=== PATIENT | female | born 1980 | race Caucasian/White ===

== ENCOUNTER → 2020-04-04 09:01 | Outpatient (CLI) | payer BC, SELFPAY ==
--- NOTE | 2020-04-04 09:11 | US_ITS ---
STUDY: ABDOMINAL ULTRASOUND - RIGHT UPPER QUADRANT REASON FOR VISIT: Female, 39 years old RUQ PAIN TECHNIQUE: Ultrasound evaluation of the right upper quadrant was performed with real-time and static shell-scale imaging. TECHNICAL QUALITY: Adequate. COMPARISON: None. FINDINGS: Liver: The liver measures 16.2 cm. There is normal echogenicity of the liver. The bile ducts are within normal limits. There is hepatic color flow. The direction of portal flow is hepatopetal. There is no demonstrated mass lesion. Gallbladder: Normal distended gallbladder. The gallbladder wall measures 2 mm. There is a negative sonographic Gallegos''s sign. There is no pericholecystic fluid. There are multiple echogenic structures within the gallbladder, consistent with multiple gallstones. Common Bile Duct (C.B.D.): The common bile duct measures 3 mm. Pancreas: Normal size of the head, body and tail of the pancreas. There is normal echogenicity of the pancreas. There is no demonstrated pancreatic mass or cyst. Right Kidney: Normal size of the right kidney. The right kidney measures 10.3 x 4.3 x 3.9 cm. Normal renal cortex. The right cortex measures 1.1 cm. There is no demonstrated renal mass or cyst. There is no right hydronephrosis, there are nonobstructing renal stones. Largest measures 0.3 x 0.4 cm. There is a extrarenal pelvis. US/Gallbladder IMPRESSION: Cholelithiasis, no sonographic evidence of acute cholecystitis Nonobstructing right nephrolithiasis Electronically Signed: Manish Martin MD at 9:53 EDT , Service support ,
== END ==
PROVIDERS: PCP Internal Medicine; Referring Provider Internal Medicine; Visit Provider Internal Medicine
DX: R10.11 Right upper quadrant pain (principal)
CPT/HCPCS: 76705

== ENCOUNTER 2021-01-31 08:20 | Outpatient (RCR) | payer BC, SELFPAY ==
[2020-05-08 13:11] VITALS: BMI 35.0
[2021-01-31] MEDS: COVID-19 VACC, MRNA(PFIZER)/PF 30 MCG/0.3 ML SYRINGE IM (13:50)
[2021-02-21] MEDS: COVID-19 VACC, MRNA(PFIZER)/PF 30 MCG/0.3 ML SYRINGE IM (13:22)
== END 2021-03-20 23:59 ==
LOC: IMMUN 08:20
PROVIDERS: PCP Internal Medicine; Visit Provider Family Medicine
DX: Z23 Encounter for immunization (principal)
CPT/HCPCS: 0001A; 0002A; 91300

== ENCOUNTER 2022-06-04 13:55 | Observation (INO) | payer BC, SELFPAY ==
[2022-06-04] VITALS (19 sets, daily range): BP systolic 100–147; BP diastolic 43–89; PULSE 60–89; RESP 14–16; TEMP 36.5–37.3; O2SAT 96–100; BMI 26.8; BMI 28.3
--- NOTE | 2022-06-04 | GALL_PTH ---
PATIENT: JALEN MELVIN LOC: MS3 U#:[id number] AGE/SX: 41/F ROOM: SC311 RE06/04/[address]: Dr. Varun Enriquez MD : 1980 BED: 1 DIS: 06/05/2022 SPEC #: [id number] RECD: 06/04/22 13:23 STATUS: MINDY JOHNSONFredis #: [id number] C[place]: 06/04/22 00:[address]: Varun Enriquez DEPT: SURGICAL PATHOLOGY RECD BY: Sidney Chavez ENTERED: 06/04/22 13:23 SP TYPE: BETTE MANRIQUE DR: LIEN MORALES, SPRUE CUTTING PRESS OPERATOR-C Tissues: Gallbladder, NOS Procedures: Surgery Specimen Level III HEADER OPERATION: Laparoscopic cholecystectomy with IOC PRE-OP DIAGNOSIS: Gallstones TISSUE SUBMITTED: Gallbladder MICROSCOPIC DIAGNOSIS Gallbladder, cholecystectomy: Chronic cholecystitis, cholelithiasis and cholesterolosis. SJ:angie 06/05/2022 MICROSCOPIC DESCRIPTION Slides are reviewed. GROSS DESCRIPTION Received is one container labeled with the patient's name and designated gallbladder. The specimen consists of a gallbladder measuring 10 cm in length and 3 cm in diameter. The external surface is pink-mitchell, smooth and glistening for the most part. Focally it is granular, hemorrhagic and contains cautery artifact. The gallbladder contains green-yellow mucoid bile and multiple, multifaceted greenish stones measuring in aggregate 4 x 4 x 1 cm and each measuring about 1.3 cm in greatest dimension. The mucosa is bile-stained and without any mass lesions. The gallbladder wall measures up to 0.3 cm in thickness. Ma[employer] Cooking sections from the gallbladder and the cystic duct are submitted in one cassette. / TI:angie 06/04/2022 :3 [facility] [place]: [id number]
[2022-06-04] MEDS: Lactated Ringers 1,000 ML 15 ML IV ×2 (06:15→08:30)
--- NOTE | 2022-06-04 06:30 | RAD_ITS ---
STUDY: INTRAOPERATIVE CHOLANGIOGRAM. REASON FOR EXAM: Female, 41 years old. PAIN, GALLSTONES FLUOROSCOPY TIME (if supplied): ( 17 seconds ) minutes/seconds. A cine loop of 114 images was submitted. TECHNIQUE: An intraoperative cholangiogram was performed by the surgeon. Imaging was submitted. COMPARISON: None. FINDINGS: The intrahepatic biliary ducts are unremarkable. The common bile duct is not dilated. No intraluminal filling defect is seen. There is free flow of contrast into the duodenum. RAD/Cholangiogram/ O R,Initial IMPRESSION: Unremarkable intraoperative cholangiography. Electronically Signed: Kirk Leonard MD at 8:45 EDT ,
--- NOTE | 2022-06-04 06:30 | EKG12_ITS ---
Test Reason : PREOP Blood Pressure : / mmHG Vent. Rate : 071 BPM Atrial Rate : 071 BPM P-R Int : 158 ms QRS Dur : 088 ms QT Int : 412 ms P-R-T Axes : -17 -25 017 degrees QTc Int : 447 ms Normal sinus rhythm Normal ECG Confirmed by XIOMY BURNS, RIC ([id number]), technical editor CONSUELO HARRIS ([id number]) on 06/06/2022 9:55:04 AM Referred By: LIEN MORALES Confirmed By:RIC STAUFFER MD
[2022-06-04 06:36] LABS: Internal QC Validated? YES +Cl - CLEAR BKGD; Pregnancy, Urine Negative Negative
--- NOTE | 2022-06-04 06:59 | PCM.HP.BLA ---
History and Physical Date of Admission: 06/04/22 Intake Vital Signs ? 05/06/2208:03 Height 5 ft 2 in Weight: 153 lb BMI 28.0 Respiration 16 Intake Visit Reasons:?WAS SEEN 04/08 FOR GALLSTONES Chief Complaint: gallstones Piler Required: No Is patient in pain?: Yes (epigastric) Allergies No Known Allergies Allergy (Verified 05/06/22 08:04) Medications bupropion HCl 100 mg tablet,12 hr sustained-release 100 mg PO BID 04/17/20 [History Confirmed 05/06/22] citalopram 10 mg tablet ea PO 04/17/20 [History Confirmed 05/06/22] sucralfate 1 gram tablet (Carafate) 1 g PO QACHS #90 tabs 04/08/22 [Rx Confirmed 05/06/22] omeprazole 40 mg capsule,delayed release See Rx Instructions .Route .COMPLEX #30 caps 05/03/22 [Rx Confirmed 05/06/22] PFSH Medical History? Anxiety and depression Gallstones History of back problems Surgical History? History of 2 sections Family History? Mother Diabetes Heart disease Myocardial infarction Hypertension CVA (cerebral vascular accident) Social History? Smoking Status:? Former smoker HPI HPI HPI: JALEN MELVIN, is a 41 F who presents to the office today for follow-up.? She was here a month ago with abdominal pain and vomiting.? Patient was started on omeprazole and Carafate and reports no improvement. ROS General General: No weight change, appetite, fatigue, colon cancer, breast cancer or weakness HEENT HEENT: No difficulty swallowing, eye injury, eye surgery, swollen glands or hoarseness Endo Endocrine: No thyroid disease, diabetes mellitus, thyroid cancer, Hair loss, heat intolerance or cold intolerance Skin Skin: No rash or changing moles Breast Breast: No left breast lump, right breast lump, nipple discharge, breast pain, abnormal mammogram, abnormal US or breast enlargement Musc Musculoskeletal: No back problems, arthritis, rheumatoid arthritis, gout or joint pain Cardio Cardiovascular: No murmur, pacemaker, heart disease, atrial fibrillation, high blood pressure, heart attack, heart stent, palpitations, shortness of breat with exertion or chest pain Psych Psychiatric: Yes depression and anxiety; No hearing voices Resp Respiratory: No shortness of breath, No sleep apnea, No cough, No COPD, No asthma, No emphysema and No wheezing Gastro Gastrointestinal: Yes abdominal pain, Yes nausea or vomiting, No diarrhea, No constipation, No blood in stool, No acid reflux, No hemorrhoids, No ulcers, Yes gallbladder problem and No black,tarry stools Bari Hematologic: No blood thinners, No blood disorders, No bleeding, Yes anemia and No blood clots Neuro Neurologic: No system reviewed and no additional complaints, except as documented, No as per HPI, No abnormal gait, No abnormal hearing, No abnormal movements, No abnormal speech, No behavioral changes, No burning sensations, No confusion, No convulsions, No disequilibrium, No dizziness, No localized weakness, No frequent falls, No headache(s), No lack of coordination, No loss of vision, No memory loss, No numbness, No other visual disturbances, No radicular pain, No restless legs, No sensory deficit, No syncope, No tingling, No tremor(s), No weakness and No other Exam Const General: cooperative Orientation: alert and oriented x3 [facility] Head: normal to inspection Neck Neck: normal visual inspection and full ROM Chest Chest palpation & inspection: normal inspection of the chest Resp Effort & Inspection: normal respiratory effort Auscultation: clear to auscultation bilaterally Cardio Rate: regular rate Rhythm: regular rhythm GI Inspection: non-distended Palpation: soft and nontender Skin General: no rashes or lesions noted Neuro General: patient alert and patient oriented x3 Extrem General: full ROM Psych Appearance: grossly normal Mental Status: mental status grossly normal Assessment and Plan Assessment and Plan (1) Gallstones: ?Status:?Acute ?Plan: The patient had abdominal pain and vomiting and was started on Carafate and a PPI which did not improve things.? At this point I would recommend laparoscopic cholecystectomy for her abdominal pain and vomiting.? I discussed the procedure in detail with the patient.? I discussed the risks, benefits, and alternatives of the procedure.? I discussed the risks including but not limited to bleeding, infection, injury to surrounding organs such as the liver, bile duct, bowels.? I did discuss the possibility of having to convert to an open procedure as well as the possibility that if any injuries occurred this may necessitate further surgery at a tertiary care center. Varun Enriquez MD Pager: [facility] [address] [place] [address], [address] [place] [address] Office: I have re-examined the patient. There are no clinical changes since date of exam.
[2022-06-04] MEDS: Cefotetan 2 GM in 0.9% NS 100 ML IV (07:29)
[2022-06-04] MEDS: Bupivacaine 0.25% 30 ML Vial (08:25)
--- NOTE | 2022-06-04 08:26 | OP.PCM_ITS ---
Report of Operation Date of Procedure: 06/04/22 Pre-Operative Diagnosis: Cholelithiasis with biliary colic Post-Operative Diagnosis: Same Surgery/Procedure Performed:: Laparoscopic cholecystectomy with cholangiogram Specimen's removed: Gallbladder and contents Description of Procedure: After obtaining informed consent patient was brought back to the operating room. General anesthesia was induced. The abdomen was prepped and draped in usual sterile fashion. A small midline incision was made superior to the umbilicus and deepened to the level of fascia. The fascia was elevated and incised. Next the peritoneum was elevated and incised in the same fashion. Finger sweep was performed and the Ulloa trocar was placed into the abdomen. The balloon was inflated. The abdomen was inflated to 15 mmHg. Next a camera was introduced into the abdomen and the abdomen was inspected. Next under direct visualization three 5-mm ports were placed one subxiphoid and 2 subcostal. Next the gallbladder was elevated and retracted toward the right shoulder. The peritoneum was stripped from the gallbladder. The infundibulum was located and retracted laterally. Next the triangle of Calot was dissected and the cystic duct and cystic artery were identified. Cholangiograms were performed. The Escoto clamp was used to clamp across the infundibulum and the catheter needle was inserted into the gallbladder. Under fluoroscopy contrast was instilled into the gallbladder and the common duct, cystic duct as well as proximal hepatic ducts were identified. There was good filling of the duodenum. There were no filling defects noted in the common bile duct. The clamp was removed as well as the needle and the infundibulum was grasped once more. Three hemolock clips were placed across the cystic duct. The cystic duct was then divided leaving 2 clips on the stump. The cystic artery was clipped and divided in the same fashion. The hook cautery was then used to take the gallbladder off of the gallbladder bed. Hemostasis was obtained. Gallbladder fossa was irrigated and no active bleeding or bile leakage was noted. Next the camera was introduced in the subxiphoid port. An Endopouch bag was placed through the umbilical port and the gallbladder was placed into it. The gallbladder was then removed through the umbilical incision. The camera was then reinserted through the umbilical port. The gallbladder fossa was inspected once more and noted to be hemostatic with no leaking bile. The abdomen was suctioned dry. The 5 mm ports were removed under direct visualization. The umbilical port was then removed and the air was removed from the abdomen. Next using an 0 Vicryl suture the umbilical fascia was closed in a [id number] fashion. The umbilical port site was irrigated local anesthetic was administered to all the incisions. All the incisions were closed with interrupted subcuticular 4-0 Monocryl sutures followed by Steri-Strips and dressings. The patient was awoken and taken to PAC U in stable condition. Admit VTE Documentation VTE Mechan Device Prophylaxis: SCD's
--- NOTE | 2022-06-04 08:27 | DCINST_ITS ---
Discharge Instructions Procedure Gallbladder Diet Discharge Diet: Light diet - advance as tolerated Activity Discharge Activity: May Not Drive (for 2-3 days or while taking narcotic pain medications.) and - (Do not drive, work heavy equipment or sign legal documents for 24 hours.) May shower in (days): 1 Lifting Restrictions: 20 lbs for 2 weeks Additional Activity Instructions:: Pain medication may cause nausea. You should typically eat light foods as you take your pain medications. Pain medication may also cause constipation. If this is a problem for you, please discuss with your doctor. Dressing / Incision Call your doctor if your incision/area has: Continuous Slow Oozing, Sudden Increased Bleeding, Increased Pain/ Swelling, Increased Redness and Foul Smelling Discharge Call your doctor if you observe: Fever of 101 or Higher Suture Line Care: Avoid Pulling/Pushing and Avoid Pinching/Bending Remove Dressing in: 2 days Additional Dressing/Incision Instructions:: Leave operative bandaids on for 2 days. When you remove dressing, leave Steri-Strips on until your follow-up appointment, or until the Steri-Strips fall off on their own. Follow Up Care Please Follow Up With: Varun Enriquez MD When: Please call to schedule 2 week follow up appointment. [phone] Test Results: Test results from this visit will be discussed in further detail at your follow- up appointment, if applicable. Discharge Plan Admission Attending Provider: Varun Enriquez Primary Care Provider: LIEN MORALES Instructions Forms: Work Excuse Discharge Orders/Prescriptions Prescriptions: New oxycodone-acetaminophen [Percocet] 5-325 mg tablet 1 tab PO Q4H PRN (Reason: pain) 5 Days Qty: 20 0RF No Action citalopram 10 mg tablet 20 mg PO DAILY Label Comments: TAKE 1 TABLET BY MOUTH AT BEDTIME cholecalciferol (vitamin D3) [Vitamin D3] 25 mcg (1,000 unit) Capsule 25 mcg PO DAILY Referrals / Follow Up: LIEN MORALES NP-C [Primary Care Provider] - Disposition Disposition (needs filled in before D/C Order can be placed): Home, Self Care
--- NOTE | 2022-06-04 13:58 | PN.SURG_ITS ---
Objective Data Objective Data Vital Signs: Vital Signs Temp Pulse Resp BP Pulse Ox O2 Del Method 98.4 F 77 14 135/73 H 96 Room Air 06/04/22 13:32 06/04/22 13:32 06/04/22 13:32 06/04/22 13:32 06/04/22 13:32 06/04/22 13:32 Oxygen Delivery Method Room Air Weight: 146 lb 9.718 oz Body Mass Index (BMI) 26.8 Intake & Output: Intake and Output for Last 24 Hours 06/02/22 06/03/22 06/04/22 23:59 23:59 23:59 Intake Total 1100 / 1100 Balance 1100 / 1100 Lab / Micro Data Labs: Laboratory Results - last 24 hr 06/04/22 06:21: Urine Test Negative Radiography Diagnostic Testing: Radiology Impression Cholangiogram 06/04/22 06:30 IMPRESSION: Unremarkable intraoperative cholangiography. Electronically Signed: Kirk Leonard MD at 8:45 EDT , Assessment & Plan Assessment/Plan (1) Postoperative nausea and vomiting: PLAN: Plan After surgery the she developed severe nausea and retching. She is unable to tolerate p.o. I will admit her and keep her on IV antibiotics. She reports that this happens every time she has anesthesia and this happened after both C- sections and lasted about 24 hours. I will continue IV antinausea medication as well as IV fluids. Varun Enriquez MD Pager: [facility] [address] [place] [address], [address] [place] [address] Office:
[2022-06-04] MEDS: 0.9% Normal Saline 1,000 ML 125 ML IV ×2 (14:05→22:13)
[2022-06-04] MEDS: Morphine 2 MG/ML Syringe IV ×2 (15:03→17:27)
[2022-06-04] MEDS: oxyCODONE 5 MG Tablet PO (18:54)
[2022-06-04] MEDS: Acetaminophen 325 MG Tablet 650 MG PO (22:11)
[2022-06-05 02:18] VITALS: BP 113/70; PULSE 63; RESP 16; TEMP 37.1; O2SAT 99
[2022-06-05] MEDS: Acetaminophen 325 MG Tablet 650 MG PO ×2 (02:25→07:32)
[2022-06-05 05:53] VITALS: BP 131/77; PULSE 73; RESP 16; TEMP 36.9; O2SAT 97
[2022-06-05 05:54] LABS: Absolute Lymphocyte Count 1.19 X10^3/uL (0.83-4.51); Absolute Neutrophil Count 8.4 X10^3/uL (2.0-7.7); Basophil# 0.01 X10^3/uL; Basophil% 0.1 % (0-1); Hemoglobin 10.9 g/dL (12.0-15.0); Lymphocyte # 1.19 X10^3/ul (0.83-4.51); Lymphocyte % 11.1 % (19-41); Mean Corp Hgb Conc 34.1 g/dL (32-36); Mean Corpuscular Hgb 31.4 pg (27.0-32.0); Mean Corpuscular Volume 92.2 fL (81-99); Mean Platelet Vol. 10.3 fl (6.2-12.0); Monocyte# 1.02 X10^3/uL; Monocyte% 9.5 % (0-10); NRBC Flagged by Analyzer 0 % (0-5); Neutrophil # 8.44 X10^3/uL (2.7-7.7); Neutrophil % 78.8 % (47-70); Platelet Count 292 K/mm3 (150-450); RBC Distribution Width CV 12.8 % (11.6-14.6); RBC Distribution Width SD 42.7 fl (35.1-43.9); Red Blood Count 3.47 M/mm3 (4.2-5.4); White Blood Count 10.7 K/mm3 (4.4-11.0)
[2022-06-05 06:15] LABS: Anion Gap 3 (5-15); BUN 6 mg/dL (7-18); BUN/Creat Ratio 8.5 RATIO (10-20); Calcium,Total 8.2 mg/dL (8.5-10.1); Chloride 109 mmol/L (98-107); Creatinine, Serum 0.71 mg/dL (0.55-1.02); EST Glomerular Filtration Rate 96 mL/min (>60); Est Glom Filt Rate - Afr Amer 116 mL/min (>60); Estimated Creatinine Clearance 81.64 ml/min; Glucose 102 mg/dL (74-106); Potassium 3.9 mmol/L (3.5-5.1); Sodium Level 139 mmol/L (136-145)
--- NOTE | 2022-06-05 07:11 | PCM.PN.SRG ---
Subjective Subjective Patient's nausea has improved. She has not had any retching. Objective Data Objective Data Vital Signs: Vital Signs Temp Pulse Resp BP Pulse Ox O2 Del Method 98.5 F 73 16 131/77 H 97 Room Air 06/05/22 05:53 06/05/22 05:53 06/05/22 05:53 06/05/22 05:53 06/05/22 05:53 06/05/22 05:53 Oxygen Delivery Method Room Air Weight: 154 lb 12.232 oz Body Mass Index (BMI) 28.3 Intake & Output: Intake and Output for Last 24 Hours 06/03/22 06/04/22 06/05/22 23:59 23:59 23:59 Intake Total 3185.00 / 3185.00 1700 / 1700 Balance 3185.00 / 3185.00 1700 / 1700 Lab / Micro Data Result Diagrams: 06/05/22 04:53 06/05/22 04:53 Labs: Laboratory Results - last 24 hr 06/05/22 04:53: WBC 10.7, RBC 3.47 L, Hgb 10.9 L, Hct 32.0 L, MCV 92.2, MCH 31.4, MCHC 34.1, RDW Std Deviation 42.7, RDW Coeff of Alyx 12.8, Plt Count 292, MPV 10.3, Immature Gran % (Auto) 0.500, Neut % (Auto) 78.8 H, Lymph % (Auto) 11.1 L, [place] % (Auto) 9.5, Eos % (Auto) 0.0, Baso % (Auto) 0.1, Absolute Neuts (auto) 8.4 H, Absolute Lymphs (auto) 1.19, Nucleated RBC % 0 06/05/22 04:53: Sodium 139, Potassium 3.9, Chloride 109 H, Carbon Dioxide 27.0, Anion Gap 3 L, BUN 6 L, Creatinine 0.71, Estim Creat Clear Calc 81.64, Est GFR (MDRD) Af Amer 116, Est GFR (MDRD) Non-Af 96, BUN/Creatinine Ratio 8.5 L, Glucose 102, Calcium 8.2 L Radiography Diagnostic Testing: Radiology Impression Cholangiogram 06/04/22 06:30 IMPRESSION: Unremarkable intraoperative cholangiography. Electronically Signed: Kirk Leonard MD at 8:45 EDT , Assessment & Plan Assessment/Plan (1) Postoperative nausea and vomiting: (2) Gallstones: PLAN: Plan Patient seems to doing well her postoperative nausea has subsided. When she tolerates regular food I will discharge her home.
[2022-06-05 07:37] VITALS: BP 146/64; PULSE 59; RESP 18; TEMP 36.8; O2SAT 100
[2022-06-05 07:46] VITALS: RESP 18
--- NOTE | 2022-06-05 10:17 | PHA.DC.MC ---
Pharmacy Service has performed discharge medication reconciliation and counseling for this patient. 1. PERCOCET 5/325MG 1T PO Q4H PRN PAIN The patient's discharge medication list was reviewed for discrepancies and discrepancies were resolved. Home Medications citalopram 10 mg tablet 20 mg PO DAILY 04/17/20 cholecalciferol (vitamin D3) 25 mcg (1,000 unit) capsule (Vitamin D3) 25 mcg PO DAILY 05/28/22 oxycodone-acetaminophen 5 mg-325 mg tablet (Percocet) 1 tab PO Q4H PRN pain 5 days #20 tabs 06/04/22 The patient was counseled on the following discharge medications and changes in medications for homegoing were reviewed. The Reason for Use, instructions for use, and potential side effects were reviewed for all new medications. The patient's questions regarding all of their medications were answered. The patient was able to verbally demonstrate an understanding of their discharge medications. Patient counseled by diploma pharmacy technicianCarrillo.
[2022-06-05] MEDS: Citalopram 20 MG Tablet PO (10:23)
[2022-06-05] MEDS: oxyCODONE 5 MG Tablet PO (11:12)
[2022-06-05 11:37] VITALS: BP 128/70; PULSE 70; RESP 18; TEMP 36.8; O2SAT 100
== END 2022-06-05 11:40 | disposition home or self-care (01) ==
LOC: MS3 13:57 → SDC 14:01 → MS3 14:01
PROVIDERS: Anesthesiology; Admitting Provider Surgery; PCP Nurse Practitioner; Referring Provider Nurse Practitioner; Visit Provider Surgery
PROC: (CPT 47610; principal; 2022-06-04 07:10)
DX: K80.64 Calculus of gallbladder and bile duct with chronic cholecystitis without obstruction (principal); Z87.891 Personal history of nicotine dependence; F41.9 Anxiety disorder, unspecified; F32.A Depression, unspecified; Z79.899 Other long term (current) drug therapy; K91.0 Vomiting following gastrointestinal surgery
CPT/HCPCS: 47563; 00790; 36415; 74300; 76000; 80048; 81025; 85025; 88304; 93005; 96361; 96365; 96366; 96375; 96376; 97802; 99218; 99251; J7030; J7120; G0378; G0463; J2405